=== PATIENT | male | born 1975 | race Caucasian/White ===

== ENCOUNTER 2016-08-29 19:22 | Emergency (ER) | payer MEDICARE, OTHER ==
[~2016-08-29] VITALS: Ht 185.4 cm; Wt 143.5 kg
[2016-08-29 19:32] VITALS: Ht 185.4 cm; Wt 143.5 kg
[2016-08-29] MEDS ORDERED: CLIN-73 PO (19:52)
[2016-08-29] MEDS ORDERED: IBUP-1542 PO (19:52)
[2016-08-29] MEDS ORDERED: HYDR-906 PO (19:53)
--- NOTE | 2016-08-29 20:09 | ERD ---
ER Documentation Chief Complaint Date/Time DATE: 08/29/16 TIME: 20:07 Chief Complaint top left tooth pain for 3 days HPI 32-year-old male presents in emergency department for complaints of left upper third molar pain for 3 days. Patient described the pain as throbbing pain, 6/10 scale, not better or worse with anything. Patient denies any fever or chills. Patient denies any facial swelling or facial pain. Patient has not seen a dentist yet. Patient took ibuprofen for pain with mild relief. ROS All systems reviewed and are negative except as per history of present illness. Medications Home Meds Active Scripts Hydrocodone/Acetaminophen ([place] 5-325 Tablet) 1 Each Tablet, 1 TAB PO Q6H Y for SEVERE PAIN LEVEL 7-10, #20 TAB Prov:PEREZ GREEN NP 08/29/16 Ibuprofen* (Motrin*) 600 Mg Tab, 600 MG PO Q6H Y for PAIN AND OR ELEVATED TEMP, #30 TAB Prov:PEREZ GREEN NP 08/29/16 Clindamycin Hcl* (Clindamycin Hcl*) 300 Mg Capsule, 300 MG PO TID for 10 Days, CAP Prov:PEREZ GREEN NP 08/29/16 Allergies Allergies: Coded Allergies: No Known Allergy (Unverified , 08/29/16) PMhx/Soc Medical and Surgical Hx: pt denies Medical Hx, pt denies Surgical Hx FmHx Family History: No coronary disease, No diabetes, No other Physical Exam Vitals Vital Signs Date Time Temp Pulse Resp B/P Pulse Ox O2 Delivery O2 Flow Rate FiO2 08/29/16 19:32 98.3 97 20 145/71 95 Physical Exam GENERAL: The patient is well developed and appropriate for usual state of health, in no apparent distress. HEENT: Atraumatic. Ears: Normal tympanic membrane, no erythema or bulging. No ear canal swelling. No ear discharge. Nose: normal nasal turbinates, no erythema or swelling. Normal nasal discharge. Throat: oropharynx clear. No tonsillar swelling or tonsillar exudates. No lymphadenopathy. Noted left upper third molar to be decayed with mild erythema in the gingiva. No facial swelling noted. CHEST: Clear to auscultation bilaterally. There are no rales, wheezes or rhonchi. HEART: Regular rate and rhythm. No murmurs, clicks, rubs or gallops. No S3 or S4. ABDOMEN: Soft, nontender and nondistended. Good bowel sounds. No rebound or guarding. No gross peritonitis. No gross organomegaly or masses. No Guzman sign or McBurney point tenderness. BACK: No midline or flank tenderness. EXTREMITIES: Equal pulses bilaterally. There is no peripheral clubbing, cyanosis or edema. No focal swelling or erythema. Full range of motion. Grossly neurovascularly intact. NEURO: Alert and oriented. Cranial nerves 2-12 intact. Motor strength in all 4 extremities with 5/5 strength. Sensation grossly intact. Normal speech and gait. SKIN: There is no apparent rash or petechia. The skin is warm and dry. HEMATOLOGIC AND LYMPHATIC: There is no evidence of excessive bruising or lymphedema. No gross cervical, axillary, or inguinal lymphadenopathy. Procedures/MDM Medical decision making: Patient's symptoms likely consistent with dental pain, possible from tooth decay and possible gingivitis. No symptoms of any facial swelling, no symptoms of any facial abscess, no suspicion for any dental abscess. Patient was given for clindamycin to prevent infection, ibuprofen and [place] for pain, is advised to see a dentist within 2-3 days for reevaluation of symptoms, possible removal of the decayed molar, patient is advised to return to emergency department for any worsening symptoms. Departure Diagnosis: Primary Impression: Pain, dental Condition: Stable Patient Instructions: Dental Pain Referrals: [facility] ([facility] walk [facility]) PEREZ GREEN NP Aug 29, 2016 20:09
== END 2016-08-29 20:20 | disposition home or self-care (01) ==
LOC: FTE 19:22 → E/R 20:20
DX: K08.89 Other specified disorders of teeth and supporting structures (principal)
CPT/HCPCS: 99284